=== PATIENT | female | born 1955 | race Caucasian/White ===

== ENCOUNTER 2019-09-25 09:34 | Emergency (ER) | payer BC ==
[2019-09-25] MEDS ORDERED: Aspirin 81 MG Tab.Chew PO ONE (09:46)
[2019-09-25] MEDS: Nitroglycerin 0.4 MG Tab.SL SL PRN ×2 (09:56→10:20)
[2019-09-25] MEDS ORDERED: Sodium Chloride 0.9% 1,000 ML IV SCH (10:00)
--- NOTE | 2019-09-25 10:08 | EDM.PDOC ---
ED HPI GENERAL MEDICAL PROBLEM - General Chief Complaint: Chest Pain Stated Complaint: CHEST PAINS Time Seen by Provider: 09/25/19 09:55 Source of Information: Reports: Patient History Limitations: Reports: No Limitations - History of Present Illness INITIAL COMMENTS - FREE TEXT/NARRATIVE: resumed work and developed persistent pain in the retrosternal area on the left , had persisted so she went to . then was sent over here has persistent localized pain , non radiating , no radiation to arms and not associated with exertion Onset: Today Onset Date: 09/25/19 Onset Time: 07:30 Duration: Intermittent Location: Reports: Chest Quality: Reports: Ache Severity: Moderate Improves with: Reports: Rest Worsens with: Reports: Movement Context: Reports: Activity Associated Symptoms: Reports: No Other Symptoms Chest Pain Score (Numeric/FACES): 5 - Related Data Allergies Allergy/AdvReac Type Severity Reaction Status Date / Time dicloxacillin Allergy Cannot Verified 09/25/19 09:50 Remember doxycycline Allergy Cannot Verified 09/25/19 09:50 Remember latex Allergy Rash Verified 09/25/19 09:50 lisinopril Allergy Cannot Verified 09/25/19 09:50 Remember Sulfa (Sulfonamide Allergy Cannot Verified 09/25/19 09:50 Antibiotics) Remember ED ROS GENERAL - Review of Systems Review Of Systems: Comprehensive ROS is negative, except as noted in HPI. Constitutional: Reports: Fatigue Respiratory: Denies: Shortness of Breath, Wheezing, Cough Cardiovascular: Reports: No Symptoms Endocrine: Reports: No Symptoms GI/Abdominal: Reports: No Symptoms : Reports: No Symptoms Skin: Reports: No Symptoms Psychiatric: Reports: No Symptoms Hematologic/Lymphatic: Reports: No Symptoms Immunologic: Reports: No Symptoms ED EXAM, GENERAL - Physical Exam Exam: See Below Exam Limited By: No Limitations General Appearance: Alert, WD/WN, No Apparent Distress, Obese Eye Exam: Bilateral Eye: EOMI Ears: Normal External Exam, Normal TMs Nose: Normal Inspection Throat/Mouth: Normal Oropharynx Head: Atraumatic, Normocephalic Neck: Supple, Non-Tender, Full Range of Motion Respiratory/Chest: Lungs Clear, Normal Breath Sounds Cardiovascular: Regular Rate, Rhythm GI/Abdominal: Non-Tender Extremities: Normal Inspection Neurological: Alert, Oriented, CN II-XII Intact Psychiatric: Normal Affect Skin Exam: Warm EKG INTERPRETATION EKG Date: 09/25/19 Rhythm: NSR Josephine: Normal P-Wave: Present QRS: Normal ST-T: Normal Comparison: NA - No Prior EKG Course - Vital Signs Last Recorded V/S: Last Vital Signs Temp 36.6 C 09/25/19 09:34 Pulse 78 09/25/19 09:34 Resp 18 09/25/19 09:34 BP 126/73 09/25/19 10:20 Pulse Ox 95 09/25/19 09:34 - Orders/Labs/Meds Orders: Active Orders 24 hr Category Date Time Status EKG Documentation Completion [RC] ASDIRECTED Care 09/25/19 09:46 Active UA W/MICROSCOPIC [URIN] Stat Lab 09/25/19 09:45 Ordered Nitroglycerin [Nitro-Dur 0.4 MG/Hr] Med 09/26/19 09:00 Active 0.4 mg TRDERM DAILY Nitroglycerin [Nitrostat] Med 09/25/19 09:46 Active 0.4 mg SL Q5M PRN Sodium Chloride 0.9% [Normal Saline] 1,000 ml Med 09/25/19 10:00 Active IV ASDIRECTED EKG 12 Lead [EK] Routine Ther 09/25/19 09:46 Ordered Medication Orders Sodium Chloride (Normal Saline) 1,000 mls @ 999 mls/hr IV ASDIRECTED MARCELO Last Admin: 09/25/19 09:50 Dose: 999 mls/hr Nitroglycerin (Nitro-Dur 0.4 Mg/Hr) 0.4 mg TRDERM DAILY MARCELO Nitroglycerin (Nitrostat) 0.4 mg SL Q5M PRN PRN Reason: Chest Pain Last Admin: 09/25/19 10:20 Dose: 0.4 mg Admin: 09/25/19 09:56 Dose: 0.4 mg Labs: Laboratory Tests 09/25/19 09/25/19 09/25/19 Range/Units 09:45 09:45 09:45 Sodium 143 (135-145) mmol/L Potassium 4.6 (3.5-5.3) mmol/L Chloride 107 (100-110) mmol/L Carbon Dioxide 28 (21-32) mmol/L BUN 23 H (7-18) mg/dL Creatinine 1.2 H (0.55-1.02) mg/dL Est Cr Clr Drug Dosing 45.20 mL/min Estimated GFR (MDRD) 45 L (>60) BUN/Creatinine Ratio 19.2 (9-20) Glucose 101 (80-116) mg/dL Calcium 9.3 (8.6-10.2) mg/dL Troponin I 4.4 (4.0-60.3) pg/mL NT-Pro-B Natriuret Pep 135 H (<=125) pg/mL Meds: Medications Generic Name Dose Route Start Last Admin Trade Name Freq PRN Reason Stop Dose Admin Sodium Chloride 1,000 mls @ 999 mls/hr 09/25/19 10:00 09/25/19 09:50 Normal Saline IV 999 mls/hr ASDIRECTED MARCELO Administration Nitroglycerin 0.4 mg 09/26/19 09:00 Nitro-Dur 0.4 Mg/Hr TRDERM DAILY MARCELO Nitroglycerin 0.4 mg 09/25/19 09:46 09/25/19 10:20 Nitrostat SL 0.4 mg Q5M PRN Administration Chest Pain Discontinued Medications Generic Name Dose Route Start Last Admin Trade Name Freq PRN Reason Stop Dose Admin Aspirin 324 mg 09/25/19 09:46 09/25/19 09:51 Aspirin PO 09/25/19 09:47 243 mg ONETIME ONE Administration Al Hydroxide/Mg Hydroxide 15 0 ml 09/25/19 10:17 09/25/19 10:36 ml/ Lidocaine HCl 15 ml PO 09/25/19 10:18 30 ml ONETIME ONE Administration Ketorolac Tromethamine 15 mg 09/25/19 11:12 Toradol IVPUSH 09/25/19 11:13 NOW STA Ketorolac Tromethamine 30 mg 09/25/19 11:26 09/25/19 11:30 Toradol IVPUSH 09/25/19 11:27 30 mg ONETIME ONE Administration Pantoprazole Sodium 40 mg 09/25/19 11:12 09/25/19 11:27 Protonix Iv IVPUSH 09/25/19 11:13 40 mg ONETIME ONE Administration - Re-Assessments/Exams Free Text/Narrative Re-Assessment/Exam: 09/25/19 11:32 pt was given 2 doses of SL nitroglycerin and still had chest pain Was then given GI cocktail , still had pain Finally given toradol and pain resolved Departure - Departure Time of Disposition: 11:50 Disposition: Home, Self-Care 01 Condition: Good Clinical Impression: Atypical chest pain Instructions: Exercise Stress Test, [id number], Nonspecific Chest Pain Referrals: PCP,None [Ordering Only Provider] - Forms: ED Department Discharge, ED Return to Work/School Form Additional Instructions: Make appointment to see you PCP : You may need to have a stress test done to check your heart function Continue with aspirin daily Reduce salt intake and exercise Sepsis Event Note - Focused Exam Vital Signs: Vital Signs Temp Pulse Resp BP BP Pulse Ox 09/25/19 10:20 126/73 09/25/19 09:56 123/74 09/25/19 09:34 36.6 C 78 18 135/81 95 Date Exam was Performed: 09/25/19 Time Exam was Performed: 11:49 - My Orders Last 24 Hours: My Active Orders 09/25/19 09:45 UA W/MICROSCOPIC [URIN] Stat 09/25/19 09:46 EKG Documentation Completion [RC] ASDIRECTED Nitroglycerin [Nitrostat] 0.4 mg SL Q5M PRN EKG 12 Lead [EK] Routine 09/25/19 10:00 Sodium Chloride 0.9% [Normal Saline] 1,000 ml IV ASDIRECTED 09/26/19 09:00 Nitroglycerin [Nitro-Dur 0.4 MG/Hr] 0.4 mg TRDERM DAILY - Assessment/Plan Last 24 Hours: My Active Orders 09/25/19 09:45 UA W/MICROSCOPIC [URIN] Stat 09/25/19 09:46 EKG Documentation Completion [RC] ASDIRECTED Nitroglycerin [Nitrostat] 0.4 mg SL Q5M PRN EKG 12 Lead [EK] Routine 09/25/19 10:00 Sodium Chloride 0.9% [Normal Saline] 1,000 ml IV ASDIRECTED 09/26/19 09:00 Nitroglycerin [Nitro-Dur 0.4 MG/Hr] 0.4 mg TRDERM DAILY
[2019-09-25] MEDS ORDERED: Alum Hydroxide/Mag Hydroxide 15 ML, Lidocaine 2% 15 ML PO ONE ×2 (10:17)
[2019-09-25] MEDS ORDERED: Pantoprazole 40 MG Vial IVPUSH ONE (11:12)
[2019-09-25] MEDS ORDERED: Ketorolac 15 MG/ML SDV IVPUSH STA (11:12)
[2019-09-25] MEDS ORDERED: Ketorolac 30 MG/ML SDV IVPUSH ONE (11:26)
[2019-09-26] MEDS ORDERED: Nitroglycerin 0.4 MG/HR Transdermal Patch TRDERM SCH (09:00)
== END 2019-09-25 11:55 | disposition home or self-care (01) ==
LOC: FB.ED 09:34
DX: R07.89 Other chest pain (principal); Z88.1 Allergy status to other antibiotic agents; Z91.040 Latex allergy status; Z88.8 Allergy status to other drugs, medicaments and biological substances; Z88.2 Allergy status to sulfonamides
CPT/HCPCS: 80048; 83880; 84484; 93005; 96361; 96374; 96375; 99285; A9270; C9113; J1885; J7030